=== PATIENT | male | born 1995 | race Caucasian/White ===

== ENCOUNTER 2017-04-15 14:54 | Emergency (ER) | payer OTHER ==
[~2017-04-15] VITALS: Ht 170.2 cm; Wt 59.0 kg
[~2017-04-15 14:54] MED LIST: AZITHROMYC200 MG/52 PO; IBUPROFEN 800800 M1 PO; MEDROLDOSEPACK PO; NOHOMEMEDICATIONS; ORAPRED15 MG/5 M1 PO; ULTRAM 50MG TAB50 MG PO; VENTOLIN HFA 1818 GM INH; ZOFRAN ODT4 MG SUBLING; ZPAK PO
[2017-04-15 15:34] LABS: ABSOLUTE BASOPHILS 0.1 thou/uL (0.0-0.2); ABSOLUTE EOSINOPHILS 0.3 thou/uL (0.0-0.7); ABSOLUTE MONOCYTES 0.6 thou/uL (0.0-1.2); ABSOLUTE NEUTROPHILS 3.9 thou/uL (1.6-8.1); BASOPHILS 0.9 %; EOSINOPHILS 4.9 %; HEMATOCRIT 43.2 % (42.0-52.0); LYMPHOCYTES 28.9 %; MCH 30.2 pg (26.0-34.0); MCHC 34.8 g/dL (28.0-37.0); MCV 86.9 fL (80.0-100.0); MPV 7.1 fl. (7.2-11.1); NUCLEATED RBCS 0 /100WBC; PLATELET COUNT* 263 thou/uL (150-400); POLYS 56.3 %; RBC 4.97 mil/uL (4.50-6.00); RDW-CV 12.7 % (10.5-14.5); WBC 6.9 thou/uL (4.0-11.0)
[2017-04-15 15:51] LABS: CALCIUM 9.7 mg/dL (8.5-10.1); CREATININE 1.2 mg/dL (0.6-1.3); POTASSIUM 3.2 mmol/L (3.5-5.1)
[2017-04-15 15:54] LABS: URINE BILIRUBIN NEGATIVE (Negative); URINE BLOOD NEGATIVE (Negative); URINE CLARITY CLEAR; URINE COLOR YELLOW; URINE GLUCOSE-RANDOM NEGATIVE (Negative); URINE KETONES NEGATIVE (Negative); URINE LEUKOCYTES-REFLEX NEGATIVE (Negative); URINE NITRITE-REFLEX NEGATIVE (Negative); URINE PROTEIN NEGATIVE (Negative); URINE SPECIFIC GRAVITY 1.015 (1.005-1.030); URINE UROBILINOGEN 0.2 E.U./dl (0.2-1.0)
[2017-04-15 15:56] LABS: ALBUMIN 4.6 g/dL (3.4-5.0); SALICYLATE < 2.8 mg/dL (2.8-20.0); TOTAL BILIRUBIN 0.3 mg/dL (<0.1-1.0); TOTAL PROTEIN 8.1 g/dL (6.4-8.2)
[2017-04-15 15:57] LABS: ACETAMINOPHEN < 2 ug/mL (10-30); ALCOHOL < 10 mg/dL (<10)
[2017-04-15 16:01] LABS: AMP/METHAMP Negative (Negative); BARBITURATES Negative (Negative); BENZODIAZEPINES Negative (Negative); COCAINE Negative (Negative); METHADONE Negative (Negative); OPIATES Negative (Negative); PCP Negative (Negative); THC Negative (Negative)
[2017-04-15 20:24] VITALS: BP 102/56
== END 2017-04-15 20:26 | disposition home or self-care (01) ==
LOC: M.ERS 14:54
PROVIDERS: Family Medicine
DX: F41.9 Anxiety disorder, unspecified (principal); R45.851 Suicidal ideations; F17.210 Nicotine dependence, cigarettes, uncomplicated

== ENCOUNTER 2017-04-17 17:17 | Emergency (ER) | payer OTHER ==
[~2017-04-17] VITALS: Ht 170.2 cm; Wt 59.0 kg
[2017-04-17 17:24] VITALS: BP 136/78
--- NOTE | 2017-04-18 13:34 | EKG ---
[place] [address] ELECTROCARDIOGRAM REPORT Name: JAYMIE CHAIREZ [id number] Admission: 04/17/17 Attend Phys: Discharge: 04/17/17 Date of : [birth year] Report #: [id number] THIS REPORT FOR: //name// [facility] ED Test Date: 2017-04-17 Test Time: 17:26:49 Pat Name: JAYMIE CHAIREZ Department: Room: Gender: M Cell Builder: Luis LEROY : 1995 Requested By: Candice Tracy Order Number: [id number] Marta MD: Smooth Ponce Measurements Intervals [place] Rate: 80 P: 39 [place]: 140 QRS: 71 QRSD: 83 T: 36 QT: 361 QTc: 417 Interpretive Statements Sinus rhythm Probable left atrial enlargement RSR' in V1 or V2, right VCD or RVH No previous ECG available for comparison Electronically Signed On 04-18-2017 13:34:03 [employer] by Smooth Ponce [email or web address] <ELECTRONICALLY SIGNED> By: Smooth Ponce MD, [facility] 04/18/17 1334 25 25 Smooth Ponce MD, FACC /EPI
== END 2017-04-17 17:46 | disposition home or self-care (01) ==
LOC: M.ERS 17:17
DX: F41.0 Panic disorder [episodic paroxysmal anxiety] (principal); R07.89 Other chest pain; F17.210 Nicotine dependence, cigarettes, uncomplicated